=== PATIENT | male | born 1995 | race Caucasian/White ===

== ENCOUNTER 2023-05-23 12:54 | Outpatient (RCR) | payer OTHER, SELFPAY | END 2023-06-14 15:07 | disposition home or self-care (01) | LOC: PT 12:54 | PROVIDERS: PCP Family Medicine | DX: M54.50 Low back pain, unspecified (principal) | CPT/HCPCS: 97110; 97161 ==

== ENCOUNTER 2023-08-25 13:43 | Outpatient (RCR) | payer OTHER, SELFPAY | END 2023-10-09 11:54 | disposition home or self-care (01) | LOC: PT 13:43 | PROVIDERS: PCP Family Medicine | DX: M54.50 Low back pain, unspecified (principal) | CPT/HCPCS: 97110; 97161 ==

== ENCOUNTER 2024-08-01 21:32 | Emergency (ER) | payer OTHER, SELFPAY ==
--- OUTSIDE RECORDS SUMMARY | 2024-08-01 21:40 | XMS_ITS | CCD ---
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 in this encounter [facility] Healthcare Summary Purpose Family History No Family History Records FoundNo Family History Records FoundNo Family History Records Found Advance Directives No Advanced Directives Records FoundNo Advanced Directives Records FoundNo Advanced Directives Records Found Additional Source Comments (unrecognized sect ion and content) No Status Records FoundNo Status Records FoundNo Status Records Found INFORMATION SOURCE (unrecogn ized section and content) DATE CREATED AUTHOR 04/30/2020 [facility] DATE CREATED AUTHOR AUTHOR'S ORGANIZ ATION 06/12/2020 [facility] DATE CREATED AUTHOR AUTHOR'S ORGANIZ ATION 06/25/2024 [facility] EPIC Care Teams (unrecognized sec tion and content) Morning Babysitter Relationship Specialty Start Date End Date Kurtis Santiago DO [address] [place] [address] PCP - General Family Medicine 11/29/22 Leonela Vivar, PA [address] [place] [address] PCP - [facility] 01/22/24 Morning Babysitter Relationship Specialty Start Date End Date Kurtis Santiago DO [address] [place] [address] PCP - General Family [facility] 11/29/22 Leonela Vivar, PA [address] [place] [address] PCP - [facility] 01/22/24 Morning Babysitter Relationship Specialty Start Date End Date Kurtis Santiago DO [address] [place] [address] PCP - General Family [facility] 11/29/22 Leonela Vivar, PA [address] [place] [address] PCP - [facility] 01/22/24 Morning Babysitter Relationship Specialty Start Date End Date Kurtis Santiago DO [address] [place] [address] PCP - General Family Medicine 11/29/22 Leonela Vivar, PA [address] [place] [address] PCP - [facility] 01/22/24 Morning Babysitter Relationship Specialty Start Date End Date Kurtis Santiago DO [address] [place] [address] PCP - General Family Medicine 11/29/22 Leonela Vivar PA [address] [place] [address] PCP - [facility] 01/22/24 Reason for Visit (unrecogniz ed section and content) Reason Comments Sore Throat Pt states he has a s ore throat and left knee pain last night. Pt Denies nasal drainage. Pt left knee pain that is described to be all over the knee. Pt Denies swelling. Pt Denies any otc medication. Reason Comments URI Pt presents for URI. S/s include a cough and runny nose. Pt was seen in on and he was told this was bronchitis. Pt was placed on an abx at that time. He states that this has helped slightly. FOR RECORDS PERTAINING TO PATIENTS WHO ARE OR HAVE BEEN ENROLLED IN A CHEMICAL DEPENDENCY/SUBSTANCEABUSE PROGRAM, SOME INFORMATION MAY BE OMITTED. This clinical summary was aggregated from multiple sources. Caution should be exercised in using it in the provision of clinical care. This summary normalizes information from multiple sources, and as a consequence, information in this document may materially change the coding, format and clinical context of patient data. In addition, data may be omitted in some cases. CLINICAL DECISIONS SHOULD BE BASED ON THE PRIMARY CLINICAL RECORDS. [facility] [employer] [facility]. provides no warranty or guarantee of the accuracy or completeness of information in this document.
[2024-08-01 21:43] VITALS: BP 128/81; PULSE 68; TEMP 36.6; O2SAT 98; BMI 21.4
--- NOTE | 2024-08-01 21:54 | PC.NURSE ---
threw up one time yesterday
--- NOTE | 2024-08-01 21:55 | PC.NURSE ---
cough started this morning.
--- NOTE | 2024-08-01 22:00 | XR_ITS ---
[address] [address] Patient Name: ABRAM BERGERON MRN: [id number] date: 1995 Sex: M Assigned Patient Location: ER Current Patient Location: ED.MAIN Accession/Order Number: [id number] Exam Date: 08/01/2024 22:08 Report Date: 08/01/2024 22:43 At the request of: HAWA MARKER Procedure: XR chest 2V EXAM: XR chest 2V HISTORY: cough COMPARISON: None FINDINGS/IMPRESSION: 1. Lungs are clear 2. No pneumothorax. No pleural effusion. 3. Heart size and mediastinal contours are normal 4. No acute osseous abnormality Electronically authenticated by: NIKITA CARDOZA Date: 08/01/2024 22:43
--- NOTE | 2024-08-01 22:01 | ED.URI1 ---
HPI - URI/Sore Throat General Chief Complaint: Nausea/Vomiting/Diarrhea Stated Complaint: nausea, vomiting Time Seen by Provider: 08/01/24 21:47 Source: patient History of Present Illness HPI Narrative: This 29-year-old male, non-smoker presents for evaluation of a cough that started yesterday. He had 1 episode of vomiting. He denies any nausea or abdominal pain. He is very vague but it sounds like he coughed so hard that he had an episode of posttussive vomiting. He does not have any chest pain or shortness of breath. He denies any fevers or chills. He has no sore throat runny nose, headache, ear pain nasal congestion neck pain or stiffness. He denies any sick contacts. He denies any dizziness or syncope. He has no lower extremity pain or swelling Related Data Allergies Allergy/AdvReac Type Severity Reaction Status Date / Time No Known Drug Allergies Allergy Verified 08/01/24 21:48 Review of Systems ROS Status of ROS 10 or more systems reviewed and unremarkable except as noted in history and below PFSH PFSH Social History Little interest or pleasure in doing things: not at all Feeling down, depressed, or hopeless: not at all Exam Narrative Exam Narrative: Vital signs and Nursing Notes reviewed: Patient is afebrile with a normal pulse, normal blood pressure, he is not hypoxic with pulse ox of 98% on room air General: Awake, alert, oriented, no acute distress, lying comfortably on the stretcher HEENT: Normocephalic atraumatic, mucous membranes are moist and pink, eyes are clear, normal conjunctiva, vision is grossly intact, posterior pharynx is normal in appearance without any erythema exudate or postnasal drip Neck: Supple, no meningeal signs, no anterior or posterior cervical lymphadenopathy Chest: Lungs are clear to auscultation with good air entry, there is no wheezing rhonchi or rales appreciated no accessory muscle use, patient is speaking in complete sentences-no chest wall tenderness to palpation CVS: Regular rate and rhythm S1-S2, no murmurs rubs or gallops, pulses are brisk and equal bilaterally ABD: Soft, nondistended, nontender, no rebound guarding or rigidity, bowel sounds are normal, no pulsatile masses appreciated Extremities: Moving all extremities, denies any lower extremity pain or swelling Skin: Normal in appearance without rash,pallor, petechiae or purpura Neuro: No focal deficits Constitutional Vital Signs, click to edit/add: Last Vital Signs Temp 97.9 F 08/01/24 21:43 Pulse 68 08/01/24 21:43 Resp 20 08/01/24 21:55 BP 128/81 08/01/24 21:43 Pulse Ox 98 08/01/24 21:43 O2 Del Method Room Air 08/01/24 21:43 Course Vital Signs Vital signs: Vital Signs Temperature 97.9 F 08/01/24 21:43 Pulse Rate 68 08/01/24 21:43 Respiratory Rate 16 08/01/24 21:43 Blood Pressure 128/81 08/01/24 21:43 Pulse Oximetry 98 08/01/24 21:43 Oxygen Delivery Method Room Air 08/01/24 21:43 Temperature 97.9 F 08/01/24 21:43 Pulse Rate 68 08/01/24 21:43 Respiratory Rate 20 08/01/24 21:55 Blood Pressure 128/81 08/01/24 21:43 Pulse Oximetry 98 08/01/24 21:43 Oxygen Delivery Method Room Air 08/01/24 21:43 MDM - URI/Sore Throat MDM Narrative Medical decision making narrative: This 29-year-old male presents for evaluation of an intermittent cough and 1 episode of vomiting that he describes as posttussive vomiting since yesterday. He has not had a fever or chills. He has no upper respiratory symptoms. He denies any abdominal pain nausea or vomiting or diarrhea. His vital signs are stable, his physical exam is benign. Lungs are clear. X-ray of the chest was ordered and is negative for acute findings. He declined the need for any Tylenol or Motrin in the emergency department. There was no indication for any respiratory treatments. He will be discharged home with a prescription for Bromfed-DM. Before discharge he requested a note for work. Medical Records Medical records narrative: The [address] [address] XRay Report Signed Patient: ABRAM BERGERON MR#: [id number] : 1995 Acct:[id number] Age/Sex: 29 / M ADM Date: 08/01/24 Loc: ER Attending Dr: Ordering Physician: Cinthia Fortune Date of Service: 08/01/24 Procedure(s): XR chest 2V Accession Number(s): [id number] cc: JACK SANTIAGO ; Cinthia Fortune~ The [place] [id number] Patient Name: ABRAM BERGERON MRN: [id number] date: 1995 Sex: M Assigned Patient Location: ER Current Patient Location: ED.MAIN Accession/Order Number: [id number] Exam Date: 08/01/2024 22:08 Report Date: 08/01/2024 22:43 At the request of: CINTHIA MARKER Procedure: XR chest 2V EXAM: XR chest 2V HISTORY: cough COMPARISON: None FINDINGS/IMPRESSION: 1. Lungs are clear 2. No pneumothorax. No pleural effusion. 3. Heart size and mediastinal contours are normal 4. No acute osseous abnormality Electronically authenticated by: NIKITA CARDOZA Date: 08/01/2024 22:43 Discharge Plan Discharge Chief Complaint: Nausea/Vomiting/Diarrhea Clinical Impression: Cough in adult Patient Disposition: Home, Self-Care Time of Disposition Decision: 22:49 Condition: Good Print Language: Citizen Of [place] Instructions: Acute Cough (ED) Referrals: JACK SANTIAGO [Primary Care Provider] - 1 week
== END 2024-08-01 23:15 | disposition home or self-care (01) ==
PROVIDERS: Emergency Provider Emergency Medicine; PCP Family Medicine
DX: R05.9 Cough, unspecified (principal)
CPT/HCPCS: 71046; 99283